=== PATIENT | female | born 1990 | race Two or more races ===

== ENCOUNTER 2018-07-26 05:26 | Emergency (ER) | payer OTHER ==
[~2018-07-26] VITALS: Ht 165.1 cm; Wt 47.6 kg
[2018-07-26 06:28] VITALS: BP 112/74
[2018-07-26 06:38] LABS: Basophils # (auto) 0 uL; Basophils % (auto) 0.1 % (0.0-2.0); Eosinophils # (auto) 0.1 uL; Eosinophils % (auto) 1.7 % (0.0-7.0); Hematocrit 40.6 % (36.0-46.0); Hemoglobin 13.9 g/dL (12.2-16.2); Lymphocytes # (auto) 0.4 uL; Lymphocytes % (auto) 5.4 % (10.0-50.0); Mean Corpuscular Hemoglobin 31.5 pg (28.0-32.0); Mean Corpuscular Hgb Conc. 34.3 g/dL (32.0-36.0); Mean Corpuscular Volume 91.9 fL (80.0-100.0); Monocytes # (auto) 0.3 uL; Monocytes % (auto) 3.4 % (0.0-12.0); Neutrophils # (auto) 7.1 uL; Neutrophils % (auto) 89.4 % (37.0-80.0); Platelet Count (auto) 193 10^3/uL (140-450); Red Blood Cells 4.42 10^6/uL (4.0-5.20); Red Cell Distribution Width 14.4 % (11.8-14.3); White Blood Cell 7.9 10^3/uL (4.4-10.8)
[2018-07-26 06:44] LABS: Urine Bacteria FEW /hpf (None Seen); Urine Blood Negative /uL (Negative); Urine Specific Gravity 1.006 (1.001-1.035); Urine WBC 3 /hpf (0 - 5)
[2018-07-26 06:59] LABS: Albumin 4.2 g/dL (3.4-5.0); BUN/Creatinine Ratio 11.9; Bilirubin, Total 1.1 mg/dL (0.2-1.0); Calcium 8.8 mg/dL (8.5-10.1); Potassium 3.6 mmol/L (3.5-5.1); Total Protein 7.6 g/dL (6.4-8.2)
[2018-07-26] MEDS ORDERED: SODIUM CHLORIDE 0.9% 1,000 ML IV ONE ×2 (07:06)
[2018-07-26] MEDS ORDERED: metroNIDAZOLE 500MG/100ML 100 ML IV ONE (07:15)
[2018-07-26] MEDS ORDERED: cefTRIAXone 1GM/10ml IVPUSH 10 ML IV ONE (07:15)
[2018-07-26] MEDS ORDERED: ONDANSETRON HCL 4 MG/2 ML VIAL IV ONE (08:15)
== END 2018-07-26 08:26 | disposition home or self-care (01) ==
LOC: ER 05:26
DX: K52.9 Noninfective gastroenteritis and colitis, unspecified (principal); N39.0 Urinary tract infection, site not specified
CPT/HCPCS: 36415; 74176; 80053; 81001; 81025; 82150; 83690; 85025; 94761; 96365; 96375; 99285; J0696; J2405; J3490; J7030

== ENCOUNTER 2018-07-27 16:11 | Emergency (ER) | payer OTHER ==
[~2018-07-27] VITALS: Ht 165.1 cm; Wt 46.3 kg
[2018-07-27 16:43] VITALS: BP 105/57
[2018-07-27 19:09] LABS: Basophils # (auto) 0 uL; Basophils % (auto) 0.4 % (0.0-2.0); Eosinophils # (auto) 0.1 uL; Eosinophils % (auto) 2.4 % (0.0-7.0); Hematocrit 42.2 % (36.0-46.0); Hemoglobin 14.1 g/dL (12.2-16.2); Lymphocytes # (auto) 0.9 uL; Lymphocytes % (auto) 18.7 % (10.0-50.0); Mean Corpuscular Hemoglobin 31.1 pg (28.0-32.0); Mean Corpuscular Hgb Conc. 33.4 g/dL (32.0-36.0); Mean Corpuscular Volume 93.1 fL (80.0-100.0); Monocytes # (auto) 0.5 uL; Monocytes % (auto) 11.4 % (0.0-12.0); Neutrophils # (auto) 3.2 uL; Neutrophils % (auto) 67.1 % (37.0-80.0); Nucleated Red Blood Cells % 0.2 %; Platelet Count (auto) 191 10^3/uL (140-450); Red Blood Cells 4.53 10^6/uL (4.0-5.20); Red Cell Distribution Width 14.4 % (11.8-14.3); White Blood Cell 4.8 10^3/uL (4.4-10.8)
== END 2018-07-27 22:15 | disposition left against medical advice (07) ==
LOC: ER 16:11
DX: R11.2 Nausea with vomiting, unspecified (principal); Z53.21 Procedure and treatment not carried out due to patient leaving prior to being seen by health care provider
CPT/HCPCS: 36415; 85025